=== PATIENT | female | born 2000 | race Two or more races ===

== ENCOUNTER 2023-03-09 08:20 | Observation (INO) | payer SELFPAY | END 2023-03-09 09:25 | disposition home or self-care (01) | LOC: LDRP 08:20 | PROVIDERS: ADMIT Obstetrics & Gynecology; ATTEND Obstetrics & Gynecology | DX: O23.42 Unspecified infection of urinary tract in pregnancy, second trimester (principal); O99.891 Other specified diseases and conditions complicating pregnancy; M54.9 Dorsalgia, unspecified; O26.892 Other specified pregnancy related conditions, second trimester; N89.8 Other specified noninflammatory disorders of vagina; Z3A.25 25 weeks gestation of pregnancy | CPT/HCPCS: 59025; 76815; 81002; G0378 ==

== ENCOUNTER 2023-05-10 03:25 | Observation (INO) | payer OTHER ==
[~2023-05-10] VITALS: Ht 167.6 cm; Wt 2.4 kg
== END 2023-05-10 04:49 | disposition home or self-care (01) ==
LOC: LDRP 03:25 → UNDOADMOB 03:25 → LDRP 03:30 → UNDODISOB 04:49
PROVIDERS: ADMIT Obstetrics & Gynecology; ATTEND Obstetrics & Gynecology
DX: O36.8130 Decreased fetal movements, third trimester, not applicable or unspecified (principal); Z3A.34 34 weeks gestation of pregnancy
CPT/HCPCS: 59025; 76818; 81002; G0378